=== PATIENT | female | born 1940 | race African-American/Black ===

== ENCOUNTER 2016-07-04 11:11 | Emergency (ER) | payer MEDICARE ==
[2016-07-04] MEDS ORDERED: NACL 0.9% 1000 ML 1,000 ML ONE (12:53)
--- NOTE | 2016-07-04 12:53 | Emergency Department Report ---
HPI - General Chief Complaint: High BP Time Seen by Provider: 07/04/16 12:09 - HPI HPI: Chief complaint: Dizzy on standing and elevated blood pressure HPI: Patient is a 76-year-old Khmer woman with a history of hypertension who is on 3 different high blood pressure medications in addition to a when necessary blood pressure medicines clonidine. Patient woke up this morning and her blood pressure was elevated and she took all 3 of her blood pressure medications. Patient states whenever she takes metoprolol she seems to be more dizzy. Patient denies chest pain or headache. Patient states sometimes when her blood pressure is elevated she has a mild headache. Patient denies nausea vomiting or diarrhea or any vertigo. Patient understands Hebrew but only speaks Khmer. Patient states family translate. Mode of arrival: [EMS] Source: [Patient] and [family member] Began: Pt has been having these problems with her blood pressure since havilnlg SVT and being put on Metoprolol. Duration: intermittent Context: pt is anxious about possibility of having a heart attack Quality: pain free Severity: 0 out of 10 Improved with: Blood pressure improves taking her medication Worsened with: Dizziness worsens when standing Associated signs and symptoms: See above. No chest pain, nausea, vomiting or diarrhea. ED Past Medical Hx - Past Medical History Previous Medical History?: Yes Hx Hypertension: Yes Additional medical history: SVT episode last year - Surgical History Past Surgical History?: No - Social History Smoking Status: Never Smoker Substance Use Type: None - Medications Home Medications: Home Medications Medication Instructions Recorded Confirmed Last Taken Type Losartan [Cozaar] 100 mg PO QDAY 07/04/16 07/04/16 Unknown History Meclizine [Antivert] 12.5 mg PO QDAY 07/04/16 07/04/16 Unknown History Metoprolol Xl [Metoprolol 25 mg PO QDAY 07/04/16 07/04/16 Unknown History SUCCINATE ER TAB] NIFEdipine [Nifedipine ER] 60 mg PO QDAY 07/04/16 07/04/16 Unknown History Valsartan [Diovan] 80 mg PO QDAY #30 tablet 07/04/16 Unknown Rx cloNIDine [Catapres] 0.1 mg PO PRN PRN 07/04/16 07/04/16 Unknown History ED Review of Systems ROS: Stated complaint: HIGH BP Other details as noted in HPI ROS Constitutional: No fever ENT: No uri symptoms Cardiovascular: No chest pain Respiratory: No sob or cough GI: No nausea vomiting or diarrhea : No dysuria frequency or urgency, Skin: No rash Neuro: No focal weakness or numbness Psych: Anxiety Donta/lymph: No edema Physical Exam - Physical Exam Vital Signs: Vital Signs 07/04/16 07/04/16 07/04/16 11:12 11:14 11:16 Temperature Pulse Rate 72 72 Respiratory 22 25 H Rate Blood Pressure 169/61 169/61 O2 Sat by Pulse 100 100 100 Oximetry 07/04/16 07/04/16 07/04/16 11:18 11:20 11:22 Temperature Pulse Rate 69 68 71 Respiratory 30 H 25 H 27 H Rate Blood Pressure 169/61 169/61 169/61 O2 Sat by Pulse 100 100 100 Oximetry 07/04/16 07/04/16 07/04/16 11:24 11:26 11:28 Temperature 97.8 F Pulse Rate 67 71 69 Respiratory 25 H 34 H 18 Rate Blood Pressure 169/61 169/61 169/61 O2 Sat by Pulse 100 100 99 Oximetry 07/04/16 07/04/16 07/04/16 11:30 11:31 11:32 Temperature Pulse Rate 70 68 67 Respiratory 17 27 H 23 Rate Blood Pressure 169/61 161/74 161/74 O2 Sat by Pulse 100 100 100 Oximetry 07/04/16 07/04/16 07/04/16 11:34 11:36 11:38 Temperature Pulse Rate 67 67 67 Respiratory 26 H 31 H 33 H Rate Blood Pressure 161/74 161/74 161/74 O2 Sat by Pulse 100 100 100 Oximetry 07/04/16 07/04/16 07/04/16 11:40 11:42 11:44 Temperature Pulse Rate 71 71 66 Respiratory 25 H 24 18 Rate Blood Pressure 161/74 161/74 161/74 O2 Sat by Pulse 100 99 100 Oximetry 07/04/16 07/04/16 11:45 11:46 Temperature Pulse Rate 66 65 Respiratory 28 H 17 Rate Blood Pressure 138/69 138/69 O2 Sat by Pulse 100 100 Oximetry Physical Exam: GENERAL: The patient is well-developed well-nourished. Patient's vital signs show orthostatic hypotension HEENT: Normocephalic. Atraumatic. Extraocular motions are intact. Patient has moist mucous membranes. NECK: Supple. No meningitic signs are noted. There is no adenopathy noted. CHEST/LUNGS: Clear to auscultation. There is no respiratory distress noted. HEART/CARDIOVASCULAR: Regular. There is no tachycardia. There is no gallop rub or murmur. ABDOMEN: Abdomen is soft, nontender. Patient has normal bowel sounds. There is no abdominal distention. SKIN: There is no rash. There is no edema. There is no diaphoresis. NEURO: The patient is awake, alert, and oriented. The patient is cooperative. The patient has no focal neurologic deficits. The patient has normal speech. MUSCULOSKELETAL: There is no tenderness or deformity. There is no limitation range of motion. There is no evidence of acute injury. ED Course Vital Signs 07/04/16 07/04/16 07/04/16 11:12 11:14 11:16 Temperature Pulse Rate 72 72 Respiratory 22 25 H Rate Blood Pressure 169/61 169/61 O2 Sat by Pulse 100 100 100 Oximetry 07/04/16 07/04/16 07/04/16 11:18 11:20 11:22 Temperature Pulse Rate 69 68 71 Respiratory 30 H 25 H 27 H Rate Blood Pressure 169/61 169/61 169/61 O2 Sat by Pulse 100 100 100 Oximetry 07/04/16 07/04/16 07/04/16 11:24 11:26 11:28 Temperature 97.8 F Pulse Rate 67 71 69 Respiratory 25 H 34 H 18 Rate Blood Pressure 169/61 169/61 169/61 O2 Sat by Pulse 100 100 99 Oximetry 07/04/16 07/04/16 07/04/16 11:30 11:31 11:32 Temperature Pulse Rate 70 68 67 Respiratory 17 27 H 23 Rate Blood Pressure 169/61 161/74 161/74 O2 Sat by Pulse 100 100 100 Oximetry 07/04/16 07/04/16 07/04/16 11:34 11:36 11:38 Temperature Pulse Rate 67 67 67 Respiratory 26 H 31 H 33 H Rate Blood Pressure 161/74 161/74 161/74 O2 Sat by Pulse 100 100 100 Oximetry 07/04/16 07/04/16 07/04/16 11:40 11:42 11:44 Temperature Pulse Rate 71 71 66 Respiratory 25 H 24 18 Rate Blood Pressure 161/74 161/74 161/74 O2 Sat by Pulse 100 99 100 Oximetry 07/04/16 07/04/16 11:45 11:46 Temperature Pulse Rate 66 65 Respiratory 28 H 17 Rate Blood Pressure 138/69 138/69 O2 Sat by Pulse 100 100 Oximetry - Reevaluation(s) Reevaluation #1: 07/04/[address] De La Cruz who recommends that she stopped taking clonidine when necessary and syringe her Cozaar to Diovan. Will have patient take her nifedipine and Diovan in the morning and her metoprolol at night. Patient is to follow-up with Dr. Emi Cabrera next week. Patient was given a liter of normal saline for her orthostasis. ED Medical Decision Making - Lab Data Result diagrams: 07/04/16 12:21 07/04/16 12:21 - EKG Data -: EKG Interpreted by Me EKG shows normal: sinus rhythm Rate: normal (69) - EKG Data When compared to previous EKG there are: previous EKG unavailable Interpretation: normal EKG - Radiology Data Radiology results: report reviewed (CT head shows no acute process.) Critical care attestation.: If time is entered above; I have spent that time in minutes in the direct care of this critically ill patient, excluding procedure time. ED Disposition Clinical Impression: Orthostatic hypotension, Essential hypertension Disposition: DISCHARGED TO HOME OR SELFCARE Is pt being admited?: No Does the pt Need Aspirin: No Condition: Stable Instructions: Hypertension (ED) Additional Instructions: Stop taking your losartan. Take a new prescription Diovan 80 mg along with urine nifedipine in the morning and take her metoprolol at night. Stopped taking clonidine. Prescriptions: Valsartan [Diovan] 80 mg PO QDAY #30 tablet Referrals: PRIMARY MD IVONNE [Primary Care Provider] - 3-5 Days EMI CABRERA MD [Staff Physician] - 2-3 Days Time of Disposition: 13:51
[2016-07-04] MEDS ORDERED: NACL 0.9% 1000 ML 1,000 ML IV ONE (12:56)
[2016-07-04 12:57] LABS: Basophils % (Auto) 0.8 % (0.0-1.8); Eosinophils % (Auto) 1.2 % (0.0-4.3); Hematocrit 35.7 % (30.3-42.9); Mean Corpuscular HGB Conc 34 % (30-34); Mean Corpuscular Hemoglobin 31 pg (28-32); Mean Corpuscular Volume 92 fl (79-97); Platelet Count 225 K/mm3 (140-440); Red Blood Count 3.89 M/mm3 (3.65-5.03); Red Cell Distribution Width 13.2 % (13.2-15.2); White Blood Count 5.1 K/mm3 (4.5-11.0)
[2016-07-04 13:06] LABS: Anion Gap 17 mmol/L; Blood Urea Nitrogen 12 mg/dL (7-17); Calcium 9.1 mg/dL (8.4-10.2); Carbon Dioxide 25 mmol/L (22-30); Chloride 88.1 mmol/L (98-107); Glucose 110 mg/dL (65-100); Potassium 4.4 mmol/L (3.6-5.0); Sodium 126 mmol/L (137-145)
--- NOTE | 2016-07-04 13:23 | Cat Scan Report ---
CT scan of head without IV contrast: History: Headache. Findings: Ventricles are normal in size and midline in location. No evidence of acute ischemia, hemorrhage or mass. No extra-axial fluid collection. Normal brainstem and cerebellum. Normal sinuses and mastoid air cells. Impression: No acute intracranial abnormality.
[2016-07-04 15:11] VITALS: BP 103/54
== END 2016-07-04 14:20 | disposition home or self-care (01) ==
LOC: ED 11:11
DX: I95.1 Orthostatic hypotension (principal); I10 Essential (primary) hypertension
CPT/HCPCS: 36415; 70450; 80048; 85025; 93005; 93010; 96360; 99284; J7030

== ENCOUNTER 2016-08-10 10:13 | Outpatient (CLI) | payer MEDICARE, OTHER ==
--- NOTE | 2016-08-10 14:27 | Mammography Report ---
BILATERAL DIGITAL SCREENING MAMMOGRAM with CAD: 08/10/16 10:13:00 CLINICAL: Routine screening. COMPARISON:08/09/15 FINDINGS: The breasts are heterogeneously dense, which may obscure small masses. No mass, architectural distortion or suspicious calcifications. IMPRESSION: No mammographic evidence of malignancy. BI-RADS CATEGORY: 1 - - Negative RECOMMENDATION: Routine mammographic screening in one year. COMMENT: Patient follow-up letters are generated by our [employer] application.
== END 2016-08-10 10:14 | disposition home or self-care (01) ==
LOC: MAMMO 10:13
DX: Z12.31 Encounter for screening mammogram for malignant neoplasm of breast (principal)
CPT/HCPCS: 77067; G0202

== ENCOUNTER 2017-08-11 09:37 | Outpatient (CLI) | payer MEDICARE, OTHER ==
--- NOTE | 2017-08-12 12:24 | Mammography Report ---
BILATERAL DIGITAL SCREENING MAMMOGRAM with CAD: 08/11/17 09:37:00 CLINICAL: Routine screening. COMPARISON:08/10/16 FINDINGS: The breasts are heterogeneously dense, which may obscure small masses. No mass, architectural distortion or suspicious calcifications. IMPRESSION: No mammographic evidence of malignancy. BI-RADS CATEGORY: 1 - - Negative RECOMMENDATION: Routine mammographic screening in one year. COMMENT: Patient follow-up letters are generated by our [employer] application.
== END 2017-08-11 09:38 | disposition home or self-care (01) ==
LOC: MAMMO 09:37
PROVIDERS: ATTEND Internal Medicine
DX: Z12.31 Encounter for screening mammogram for malignant neoplasm of breast (principal)
CPT/HCPCS: 77067

== ENCOUNTER 2018-08-12 09:51 | Outpatient (CLI) | payer MEDICARE, OTHER ==
--- NOTE | 2018-08-12 14:33 | Mammography Report ---
BILATERAL DIGITAL SCREENING MAMMOGRAM with CAD: 08/12/18 09:51:00 CLINICAL: Routine screening. COMPARISON:08/11/17 and 08/10/16 FINDINGS: The breasts are heterogeneously dense, which may obscure small masses. No mass, architectural distortion or suspicious calcifications. IMPRESSION: No mammographic evidence of malignancy. BI-RADS CATEGORY: 1 - - Negative RECOMMENDATION: Routine mammographic screening in one year. COMMENT: Patient follow-up letters are generated by our [employer] application.
== END 2018-08-12 09:52 | disposition home or self-care (01) ==
LOC: MAMMO 09:51
PROVIDERS: ATTEND Internal Medicine
DX: Z12.31 Encounter for screening mammogram for malignant neoplasm of breast (principal); I10 Essential (primary) hypertension
CPT/HCPCS: 77067

== ENCOUNTER 2018-10-13 09:23 | Outpatient (CLI) | payer MEDICARE, OTHER ==
--- NOTE | 2018-10-13 14:17 | Nuclear Medicine Report ---
BONE SCAN: History: Bone pain, no history of cancer or trauma. After injection of isotope, gamma camera imaging of the bony system was done. The images demonstrate increased linear uptake in left anterolateral ribs 3, 4 and 5. This linear pattern is highly suggestive of traumatic fractures. Mild degenerative uptake is noted in the shoulders and right knee. No metastatic pattern is identified. IMPRESSION: Findings consistent with left anterolateral rib fractures as described. Consider correlation with x-ray or CT as needed. Mild degenerative changes in the shoulders and right knee.
--- NOTE | 2018-10-18 09:30 | Mammography Report ---
DEXA BONE DENSITY SCAN INDICATION: BONE PAIN. COMPARISON: None available. LUMBAR SPINE (L1-L4): Bone mineral density (BMD) is 0.882 g/cm2. T-score is -1.5 (standard deviations of Young Adult mean). Z-score is -1.0 (standard deviations of Age Matched mean). LEFT HIP: Total Bone mineral density (BMD) is 0.778 g/cm2. T-score is -1.3 (standard deviations of Young Adult mean). Z-score is +0.5 (standard deviations of Age Matched mean). LEFT FEMORAL NECK: Bone mineral density (BMD) is 0.647 g/cm2. T-score is -1.8 (standard deviations of Young Adult mean). Z-score is +0.5 (standard deviations of Age Matched mean). IMPRESSION: 1. WHO Classification: Osteopenia. Fracture Risk: Increased based on both spine and left hip measurem ents. Signer Name: Fidel Iglesias MD Signed: 10/18/2018 10:25 AM Workstation Name: [id number]
== END 2018-10-13 09:24 | disposition home or self-care (01) ==
LOC: NM 09:23
PROVIDERS: ATTEND Internal Medicine
DX: M19.012 Primary osteoarthritis, left shoulder (principal); M19.011 Primary osteoarthritis, right shoulder; M17.11 Unilateral primary osteoarthritis, right knee; M81.0 Age-related osteoporosis without current pathological fracture; I10 Essential (primary) hypertension
CPT/HCPCS: 77080; 78306; A9503